=== PATIENT | male | born 1955 | race Caucasian/White ===

== ENCOUNTER 2025-06-08 10:56 | Observation (INO) | payer MEDICARE, BC, SELFPAY ==
[2025-06-08] VITALS (8 sets, daily range): BP systolic 105–139; BP diastolic 62–91; PULSE 82–96; RESP 17–27; TEMP 36.8; O2SAT 93–94; BMI 35.2
--- OUTSIDE RECORDS SUMMARY | 2025-06-08 10:59 | XMS_ITS | Clinical Summary ---
Author Organization [facility] Address [address] [place] [address] Phone Care Team Providers Care Keg Varnisher Name Role Phone Fer Rivera DO Primary Care Provider Allergies Active Allergy Reactions Criticality Noted Date Comments Jlrkdjw-Syz-Fzz Reductase Inhibitors Weakness High 07/12/2015 Trazodone Other (See Comments) 12/09/2020 tachycardia Medications OTHER Take by mouth daily. Vitamins and Supplements/D o not take 5 days before surgery 12/09/2020 Active cyclobenzaprine (FLEXERIL) 10 mg tablet Take 10 mg by mouth every 8 hours as needed. Active fieut-xp-6-dha- wwr-oofbzbd-ktz 1,432-464-57-80 mg Capsule Take 1 Tablet by mouth. Active HYDROcodone-nadiya taminophen (NORCO) 10-325 mg Tablet Take 1 Tablet by mouth every 4 hours as needed. 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 07/12/2015 07/09/2015 Preoperative general physical examination 2014 Hypercalcemia 06/28/2015 Obesity with body mass index of 30.0-39.9 2014 Hx of renal calculi Resolved Problems Problem Noted Date Diagnosed Date Resolved Date Primary osteoarthritis of right hip 06/28/2015 05/06/2025 Encounters Date Type Department Care Team Description 06/02/2025 Telephone [facility] [address] [place] [address] Tony Morales MD Question 05/19/2025 External Device Data STL ABSTRACTION Provider, Abstract 05/12/2025 External Device Data STL ABSTRACTION Provider, Abstract 05/12/2025 External Device Data STL ABSTRACTION Provider, Abstract 05/12/2025 External Device Data STL ABSTRACTION Provider, Abstract 05/06/2025 10:00 AM CDT Office Visit [facility] [address] [place] [address] Maria Antonia Holbrook NP Right knee pain, unspecified chronicity (Primary Dx); Primary osteoarthritis of right knee; Primary osteoarthritis of left knee 05/06/2025 9:35 AM CDT Ancillary Procedure [facility] [address] [place] [phone] Tony Morales MD Right knee pain, unspecified chronicity 05/06/2025 Telephone [facility] [address] [place] [address] Maria Antonia Holbrook NP Authorization 04/29/2025 Orders Only [facility] [address] [place] [phone] Tony Morales MD Right knee pain, unspecified chronicity (Primary Dx) from Last 3 Months Family History Medical History Relation Name Comments Healthy Brother Kelechi Other Father Sebastian rheumatoid, cir rhosis, COPD, heart problems Breast Cancer Mother Lois Other Mother Lois bowel obstructi on Stroke Mother Lois Unknown Mother Lois wasted away Heart Disease Sister Ashlee congenital hea rt defect- Healthy Son 1 Greg Other Son 2 Kwan GERD Relation Name Status Comments Brother Kelechi Alive Father Sebastian (Age 71) Mother Lois (Age 76) Sister Ashlee (Age 42) Son 1 Greg Alive Son 2 Kwan Alive Social History Tobacco Use Types Packs/Day Years Used Date Smoking Tobacco: Former Cigarettes Q uit: 11/11/2019 Smokeless Tobacco: Never Tobacco Cessation:Counseling Given: Not Answered Alcohol Use Standard Drinks/Week Comments No 0 (1 standard drink = 0.6 oz pur e alcohol) Sex and Gender Information Value Date Recorded Sex Assigned at Not on file Legal Sex Male 1:25 AM 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 Gender Identity Not on file Sexual Orientation Not on file Last Filed Vital Signs Vital Sign Reading Time Taken Comments Blood Pressure 152/92 05/06/2025 10:05 AM CDT Pulse 88 04/12/2022 1:19 PM CDT Temperature 36.3 C (97.4 F) 12/16/2020 2:00 PM CDT Respiratory Rate 16 12/16/2020 1:30 PM CDT Oxygen Saturation 92% 03/10/2021 1:32 PM CDT Inhaled Oxygen Concentration - - Weight 134.7 kg (297 lb) 05/06/2025 10:05 AM CDT Height 195.6 cm (6' 5 ) 05/06/2025 10:05 AM CDT Body Mass Index 35.22 05/06/2025 10:05 AM CDT Plan of Treatment Upcoming Encounters Date Type Department Care Team (Late st Contact Info) Description 06/10/2025 2:40 PM 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 Office Visit [facility] Orthopedics - Orthopedic [facility] [address] [place] [phone] Tony Morales MD [address] [place] [phone] Health Maintenance Due Date Last Done Comments Pre-Diabetes and Diabetes Screening 1955 DTAP/TDAP/TD VACCINES (1 - Tdap) 1974 COLORECTAL SCREENING 2000 Colorectal Cancer Screening 2000 FIT-DNA Q 3 years 2000 FIT/FOBT Q 1 year 2000 Flex Sig/CT Colonography Q 5 years 2000 PNEUMOCOCCAL VACCINE 50+ YEARS (1 of 1 - PCV) 04/28/20 05 ZOSTER VACCINE (1 of 2) 2005 Abdominal Aortic Aneurysm (AAA) Screening 2020 INFLUENZA VACCINE (#1) 2025 RSV VACCINE (60+ or ) (1 - 1-dose 75+ series) 2030 Medical Devices Implanted Type Area Associate Drafter Device Identifier Shelf Expiration Date Model / Serial / Lot Cup Rstrtn Adm 56mm Rt 1235-2-561 - [id number] Implanted:Qty: 1 on 07/12/2015 by Tony Morales MD Hip Right: Hip [employer] 2020 1235-2-561 / / [id number] Head Fem V40 Tpr Lfit 6260-9-328 - [id number] Implanted:Qty: 1 on 07/12/2015 by Tony Morales MD Hip Right: Hip [employer] 01/27/2020 6260-9-328 / / [id number] Liner Rstrtn Adm X3 28/56 1236-2-856 - [id number] Implanted:Qty: 1 on 07/12/2015 by Tony Morales MD Hip Right: Hip [employer] 03/29/2019 1236-2-856 / / [id number] Stem Fem Accld Ii 127d Sz5 [id number] - [id number] Implanted:Qty: 1 on 07/12/2015 by Tony Morales MD Hip Right: Hip [employer] 02/27/2020 [id number] / / [id number] Explanted Type Area Associate Drafter Device Identifier Shelf Expiration Date Model / Serial / Lot Screw Explanted:Qty: 1 on 07/12/2015 by Tony Morales MD Right: Hip Procedures Procedure Name Priority Date/Time Associated Diagnosis Comments XR KNEE 4+ VW RIGHT Routine 05/06/2025 9 :52 AM CDT Right knee pain, unspecified chronicity from Last 3 Months Results * XR KNEE 4+ VW RIGHT (05/06/2025 9:52 AM CDT) Anatomical Region Laterality Modality Lower Extremity Computed Radiogr aphy Narrative 05/06/2025 3:12 PM CDT 4 views of the right knee shows evidence of: Subchondral Sclerosis, Periarticular Osteophytes, and Joint Space Narrowing us Tony Morales MD DIAGNOSTIC IMAGING ORDERABLES Final Result from Last 3 Months Insurance MEDICARE PART A AND B [facility] * Guarantor: SHERRY SANABRIA Account Type Relation to Patient Date of Phone Billing Address Personal/Family [id number] [address] [place] [id number] [address] [facility] [employer] Care Teams Keg Varnisher Relationship Specialty Start Date End Date Fer Rivera DO [address] [place] [phone] PCP - General Internal Medicine 06/28/15
--- OUTSIDE RECORDS SUMMARY | 2025-06-08 11:00 | XMS_ITS | Encounter Summary ---
Author Organization [facility] Address [address] [place] [address] Care Team Providers Care Museum Informatics Specialist Name Role Phone RiveraFer Primary Care Provider [phone] Encounter Details Date Type Department Care Team (Latest Contact Info) Description 03/13/2016 Ancillary Orders [facility] Orthopedics - Orthopedic [facility] [address] [place] [phone] Tony Morales MD [address] [place] [address] Acute pain of right shoulder (Primary Dx) Social History Tobacco Use Types Packs/Day Years Used Date Smoking Tobacco: Former Cigarettes 1.5 45 0 03/28/1970 - 03/28/2015 Smokeless Tobacco: Never Alcohol Use Standard Drinks/Week Comments No 0 (1 standard drink = 0.6 oz pur e alcohol) Sex and Gender Information Value Date Recorded Sex Assigned at Not on file 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 Exam: XR SHOULDER 2+ VW RIGHT Date/Time of Exam: 03/13/2016 12:01 PM Reason For Exam: Acute pain of right shoulder. Findings: 0.2 mL OptiMARK contrast and 5 mL Conray 60 contrast was injected into the right glenohumeral joint. Images confirm the intra-articular injection of contrast. Please see the MRI the same day. No rotator cuff tear is identified on these images. Narrative Procedure Note Ericka Mitchell MD - 03/13/2016 IMPRESSION IMPRESSION: Please see below. Exam: XR SHOULDER 2+ VW RIGHT Date/Time of Exam: 03/13/2016 12:01 PM Reason For Exam: Acute pain of right shoulder. Findings: 0.2 mL OptiMARK contrast and 5 mL Conray 60 contrast was injected into the right glenohumeral joint. Images confirm the intra-articular injection of contrast. Please see the MRI the same day. No rotator cuff tear is identified on these images. us Tony Morales MD DIAGNOSTIC IMAGING ORDERABLES Final Result documented in this encounter Visit Diagnoses Diagnosis Acute pain of right shoulder- Primary Acute pain of right shoulder documented in this encounter Care Teams Museum Informatics Specialist Relationship Specialty Start Date End Date Fer Rivera DO [address] [place] [phone] PCP - General Internal Medicine 06/28/15 documented as of this encounter
--- OUTSIDE RECORDS SUMMARY | 2025-06-08 11:00 | XMS_ITS | Encounter Summary ---
Author Organization [facility] Address [address] [place] [address] Care Team Providers Care Horologist Name Role Phone RiveraFer Primary Care Provider [phone] Reason for Visit * Reason Onset Date Comments Question 06/02/2025 Encounter Details Date Type Department Care Team (Late st Contact Info) Description 06/02/2025 Telephone [facility] Orthopedics Orthopedic [facility] [address] [place] [phone] Tony Morales MD [address] [place] [phone] Question Social History Tobacco Use Types Packs/Day Years Used Date Smoking Tobacco: Former Cigarettes Q uit: 11/11/2019 Smokeless Tobacco: Never Alcohol Use Standard Drinks/Week Comments No 0 (1 standard drink = 0.6 oz pur e alcohol) Sex and Gender Information Value Date Recorded Sex Assigned at Not on file Legal Sex Male 1:25 AM 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 Gender Identity Not on file Sexual Orientation Not on file documented as of this encounter Miscellaneous Notes * Telephone Encounter - Yolette Anand - 06/02/2025 8:03 AM CST [place] Please schedule total knee discussion with the team AEOLOGIST documented in this encounter Plan of Treatment Upcoming Encounters Date Type Department Care Team (Late st Contact Info) Description 06/10/2025 2:40 PM 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 Office Visit [facility] Orthopedics - Orthopedic [facility] [address] [place] [address] Tony Morales MD [address] [place] [phone] documented as of this encounter Visit Diagnoses Not on filedocumented in this encounter Care Teams Horologist Relationship Specialty Start Date End Date Fer Rivera DO [address] [place] [phone] PCP - General Internal Medicine 06/28/15 documented as of this encounter
--- OUTSIDE RECORDS SUMMARY | 2025-06-08 11:00 | XMS_ITS | Encounter Summary ---
Author Organization [facility] Address [address] 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
--- OUTSIDE RECORDS SUMMARY | 2025-06-08 11:00 | XMS_ITS | Clinical Summary ---
Author Organization [facility] Orthopedic [facility] Address [address] [place] [address] Phone Care Team Providers Care Experimental Mechanic Name Role Phone RiveraFer Primary Care Provider [phone] Allergies Active Allergy Reactions Criticality Noted Date Comments Nkgtije-Znv-Rwg Reductase Inhibitors Weakness High 07/12/2015 Trazodone Other (See Comments) 12/09/2020 tachycardia Medications cyclobenzaprine (FLEXERIL) 10 mg tablet Take 10 mg by mouth 3 times daily as needed for Spasm. Active diazepam (VALIUM) 10 mg tablet Take 10 mg by mouth 2 times daily . Active bpjme-av-5-dha- sif-xpagxyt-bnz (KRILL OIL) 1,448-339-35-50 mg Capsule Take 1 Tablet by mouth daily with supper. Active docusate sodium (COLACE) 100 mg capsule Take 1 Capsule (100 mg) by mouth 2 times daily as needed for Constipation. 60 Capsule 0 5 Active cpap medical deviceIndicatio ns:obstructive sleep apnea syndrome,Obstru ctive Sleep Apnea-Hypopnea Syndrome Auto titration CPAP at a pressure of 10-13 CWP. Cpap/Bipap supplies: Full face mask and headgear A7030/A7035 1/6mo, mask only A7030 1/3mo, cushions A7031 1/mo, heated tubing A4604, 1/3mo, water chamber A7046 1/6mo, filter disposable filters A7038 2/mo, reusable filters A7039 1/6mo. Chin Strap A7036 1/6 mo Length of need; 99 mo DX : G47.33 1 Each 0 03/14/20 70 Active HYDROcodone-nadiya taminophen (NORCO) 10-325 mg Tablet Take 1 Tablet by mouth every 4 hours as needed for Pain, Moderate. Active OTHER Take by mouth daily. Vitamins and Supplements/Do not take 5 days before surgery Active celecoxib (CeleBREX) 400 mg capsule Take 400 mg by mouth daily. Active sertraline (ZOLOFT) 50 mg tablet Take 50 mg by mouth daily. Active vit calc,iron,folic ( VITAMIN ORAL) Take 1 Each by mouth daily. Active oxyCODONE (OxyCONTIN) 10 mg Controlled Release 12 hour crush resistant tabletIndicatio ns:Trigger finger, right middle finger,Carpal tunnel syndrome of right wrist,Cubital tunnel syndrome on right Take 1 Tablet (10 mg) by mouth every 12 hours as needed for Pain, Severe (BREAK-THROUGH POST-OPERATIVE PAIN). 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 07/12/2015 07/09/2015 Preoperative general physical examination 2014 Primary osteoarthritis of right hip 06/28/2015 Hypercalcemia 06/28/2015 Obesity with body mass index of 30.0-39.9 2014 Hx of renal calculi Family History Medical History Relation Name Comments Healthy Brother Kelechi Other Father Sebastian rheumatoid, cir rhosis, COPD, heart problems Breast Cancer Mother Lois Other Mother Lois bowel obstructi on Stroke Mother Lois Unknown Mother Lois wasted away Heart Disease Sister Ashlee congenital hea rt defect- Other Son 1 Kwan GERD Healthy Son 2 Greg Relation Name Status Comments Brother Kelechi Alive Father Sebastian (Age 71) Mother Lois (Age 76) Sister Ashlee (Age 42) Son 1 Kwan Alive Son 2 Greg Alive Social History Tobacco Use Types Packs/Day Years Used Date Smoking Tobacco: Former Cigarettes 1.5 45 0 11/10/1974 - 11/11/2019 Smokeless Tobacco: Never Alcohol Use Standard Drinks/Week Comments No 0 (1 standard drink = 0.6 oz pur e alcohol) Sex and Gender Information Value Date Recorded Sex Assigned at Not on file 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 Gender Identity Not on file Sexual Orientation Not on file Last Filed Vital Signs Vital Sign Reading Time Taken Comments Blood Pressure 126/90 12/16/2020 2:00 PM CDT Pulse 78 12/16/2020 2:00 PM CDT Temperature 36.3 C (97.4 F) 12/16/2020 2:00 PM CDT Respiratory Rate 16 12/16/2020 1:30 PM CDT Oxygen Saturation 93% 12/16/2020 2:00 PM CDT Inhaled Oxygen Concentration - - Weight 147.4 kg (325 lb) 12/31/2020 8:42 AM CDT Height 195.6 cm (6' 5 ) 12/31/2020 8:42 AM CDT Body Mass Index 38.54 12/31/2020 8:42 AM CDT Plan of Treatment Health Maintenance Due Date Last Done Comments DTAP/TDAP/TD VACCINES (1 - Tdap) 1974 COLORECTAL SCREENING 2000 Colorectal Cancer Screening 2000 FIT-DNA Q 3 years 2000 FIT/FOBT Q 1 year 2000 Flex Sig/CT Colonography Q 5 years 2000 PNEUMOCOCCAL VACCINE 50+ YEARS (1 of 1 - PCV) 04/28/20 05 ZOSTER VACCINE (1 of 2) 2005 INFLUENZA VACCINE (#1) 2025 RSV VACCINE (60+ or ) (1 - 1-dose 75+ series) 2030 Medical Devices Implanted Type Area Yeast Pumper Device Identifier Shelf Expiration Date Model / Serial / Lot Cup Rstrtn Adm 56mm Rt 1235-2-895 - [id number] Implanted:Qty: 1 on 07/12/2015 by Tony Morales MD at [facility] Hip Right: Hip [employer] 2020 1235-2-561 / / [id number] Stem Fem Accld Ii 127d Sz5 [id number] - [id number] Implanted:Qty: 1 on 07/12/2015 by Tony Morales MD at [facility] Hip Right: Hip [employer] 02/27/2020 [id number] / / [id number] Liner Rstrtn Adm X3 1236-2-856 - [id number] Implanted:Qty: 1 on 07/12/2015 by Tony Morales MD at [facility] Hip Right: Hip [employer] 03/29/2019 1236-2-856 / / [id number] Head Fem V40 Tpr Lfit 6260-9-328 - [id number] Implanted:Qty: 1 on 07/12/2015 by Tony Morales MD at [facility] Hip Right: Hip [employer] 01/27/2020 6260-9-328 / / [id number] Explanted Type Area Yeast Pumper Device Identifier Shelf Expiration Date Model / Serial / Lot Screw Explanted:Qty: 1 on 07/12/2015 by Tony Morales MD at [facility] Right: Hip Insurance MEDICARE PART A AND B [employer] [facility] [employer] Advance Directives For more information, please contact: [phone] * Full Code (Latest Code Status on File) Date Activated Date Inactivated Comments 12/16/2020 10:08 AM 12/16/2020 4:18 PM * Full Code Date Activated Date Inactivated Comments 07/12/2015 1:52 PM 07/13/2015 2:59 PM * Full Code Date Activated Date Inactivated Comments 07/12/2015 9:25 AM 07/12/2015 1:52 PM Care Teams Experimental Mechanic Relationship Specialty Start Date End Date Fer Rivera DO [address] [place] [phone] PCP - General Internal Medicine 06/28/15
--- NOTE | 2025-06-08 11:57 | PC.NURSE ---
Patient received from [facility] as direct admit. Arrived by ambulance. Patient c/o persistent chest pain/pressure to mid sternal area worse with inspiration. Patient has nitro paste applied at ABS. to left upper chest. Patient c/o severe headache since paste was applied. Patient is AAOx4. Asks and answers questions appropiately. Admission assessment completed by SN Reina. This RN was at bedside and conquers with assessments.
--- NOTE | 2025-06-08 12:45 | ECG_ITS ---
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 Measurements Intervals [place] Rate: 92 P: 25 TX: 152 QRS: 14 QRSD: 117 T: 13 QT: 365 QTc: 454 Interpretive Statements SINUS RHYTHM MODERATE INTRAVENTRICULAR CONDUCTION DELAY [110+ ms QRS DURATION] No previous ECG available for comparison Electronically Signed On 06-08-2025 18:14:03 INTELLIGENCE ANALYST by Humaira Mi M.D. [email or web address]
--- NOTE | 2025-06-08 12:48 | USCV_ITS ---
Jake Ruiz Age: 70 Gender: M : 1955 Exam Date: 06/08/2025 15:54 Ordering Phys: Crys Jara IT TRAINER Technologist: TOMAS Exam Location: [facility] [place] Indication: Angina BP: 139 / 91 HR: 79 Rhythm: Sinus Technical Quality: Adequate MEASUREMENTS (Male / Female) Normal Values 2D ECHO LV Diastolic Diameter PLAX 6.3 cm 4.2 - 5.9 / 3.9 - 5.3 cm IVS Diastolic Thickness 1.0 cm 0.6 - 1.0 / 0.6 - 0.9 cm IVS Systolic Thickness 1.1 cm LVPW Diastolic Thickness 1.0 cm 0.6 - 1.0 / 0.6 - 0.9 cm LVPW Systolic Thickness 1.0 cm LVOT Diameter 2.3 cm LV Ejection Fraction 2D Teich 53.8 % LV Ejection Fraction MOD 4C 56.9 % LV Ejection Fraction MOD 2C 47.3 % LV Ejection Fraction 2C AL 47.5 % LA Diameter 3.4 cm RA Systolic Volume 4C AL 41.7 ml RA Systolic Volume 4C MOD 39.3 ml LA Sys Volume AL 33.1 cm cubed LA Sys Volume Index AL 12.1 cm cubed/m squared Aorta at Sinotubular Diameter 3.1 cm M-MODE LA Ao Ratio MM 0.9 AV Cusp Separation MM 2.1 cm DOPPLER AV Peak Velocity 96.0 cm/s LVOT Peak Velocity 60.0 cm/s AV Area Cont Eq vti 2.6 cm squared AV Area Cont Eq pk 2.5 cm squared MV Peak Velocity 63.0 cm/s MV Area PHT 4.6 cm squared Mitral E to A Ratio 0.7 TR Peak Velocity 95.0 cm/s TR Peak Gradient 3.6 mmHg TV Peak E Velocity 53.0 cm/s PV Peak Velocity 74.0 cm/s FINDINGS Left Ventricle Technically limited quality echocardiogram because of poor ultrasonic windows. Grossly LV systolic function is normal. No gross regional wall motion abnormalities. Right Ventricle Normal in size and function Right Atrium Normal in size Left Atrium Normal in size IA Septum Grossly normal Mitral Valve Grossly normal Aortic Valve Grossly normal. No significant stenosis seen. Tricuspid Valve Not well visualized Pulmonic Valve Not well visualized Pericardium Normal Aorta Normal in size IVC Not well visualized CONCLUSIONS Technically limited quality echocardiogram because of poor ultrasonic windows. Grossly LV systolic function is normal. Crispin Elias MD (Electronically Signed) Final Date: 08 June 2025 20:29 S
[2025-06-08] MEDS: morphine 4 mg/mL SDV 1 mL IVP ×2 (13:09→21:43)
[2025-06-08] MEDS: ondansetron 2 mg/ML SDV 2 mL 4 MG IVP (13:09)
[2025-06-08 13:44] LABS: Platelet Count 349 10^3/cmm (157-399)
[2025-06-08] MEDS: pantoprazole 40 mg SDV IVP (14:01)
[2025-06-08] MEDS: heparin drip 25,000 UNIT/500 ML PREMIX 38 UNIT IV (14:02)
[2025-06-08] MEDS: HYDROcodone-acetaminophen 10-325 mg Tablet 1 TAB PO ×3 (14:06→23:51)
[2025-06-08 14:21] LABS: Partial Thromboplastin Time 27.0 SECONDS (23.9-36.7)
--- NOTE | 2025-06-08 14:49 | PM.CONSULT ---
Providers/Reason For Consult Consulting Physician/Specialty*: Dr Elias, interventional cardiology Reason for Consult*: chest pain Requesting Physician: SHELLY Ernst NP Attending Physician: SHELLY Ernst NP History of Present Illness History of Present Illness Jake Ruiz is a 70 year old male with previous history of smoking, hypertension, chronic back pain who presented to an outside facility with severe substernal chest pain radiating to the bilateral jaws, with back pain between the scapulae which seems to be reproducible with palpation. The last time he had chest pain like this was the week his . At that time, which was 2019, he had a coronary angiogram which showed no disease, per patient. He has never had an [place], CHF, no previous stent. He has had high blood pressure lately, but that is a new development as well. At the outside facility, baseline troponin was normal, no ischemic EKG changes. He was transferred to our facility due to the typical nature of the chest pain symptoms. He was previously on a statin (cannot recall the name) and reports he had progressive muscle weakness for the time he was taking it. He declines to try any other statin medication. Home medications include enalapril, Celebrex and naproxen, with as needed hydrocodone for back pain. He had previous back surgeries with significant daily residual back pain. No chest pain, shortness of breath, fatigue or other anginal equivalent noted in the days or weeks leading up to this event. He is not able to lay flat in the bed due to worsening of the back pain. EKG here does not show any ischemia. Review of Systems Const: Denies: fever(s), chills, change in weight, fatigue or diaphoresis Eyes: Denies: change in vision ENMT: Denies: epistaxis Card: Reports: chest pain; Denies: palpitations, irregular heart rhythm, edema, syncope, pre-syncope, dyspnea on exertion, orthopnea or leg pain with exertion Resp: Denies: dyspnea, productive cough or wheezing GI: Denies: nausea, vomiting, hematemesis, hematochezia or melena : Denies: hematuria Musc: Denies: extremity swelling Dariel/Lymph: Denies: easy bruising or easy bleeding Medications/Allergies Home Medications ?Medication ?Instructions ?Recorded ?Confirmed ?Last Taken ?Type celecoxib 100 mg capsule 100 mg PO BID 06/08/25 06/08/25 Unknown History enalapril maleate 5 mg tablet 5 mg PO BEDTIME 06/08/25 06/08/25 06/07/25 21:00 History hydrocodone 10 mg-acetaminophen 1 - 1.5 tab PO Q4H PRN Moderate 06/08/25 06/08/25 06/08/25 06:30 History 325 mg tablet Pain (Scale Score 5-6) 1.5 magnesium 500 mg tablet 1,000 mg PO DAILY 06/08/25 06/08/25 06/08/25 07:00 History naproxen sodium 220 mg capsule 440 mg PO DAILY PRN Pain (Scale 06/08/25 06/08/25 Unknown History Score 1-3) tizanidine 4 mg tablet 4 mg PO TID PRN muscle spasms 06/08/25 06/08/25 06/07/25 12:00 History vitamin D3 125 mcg (5,000 1 cap PO DAILY 06/08/25 06/08/25 06/08/25 06:30 History unit)-vitamin K2 100 mcg capsule zinc 50 mg tablet 50 mg PO DAILY 06/08/25 06/08/25 06/08/25 06:30 History Allergies Allergy/AdvReac Type Severity Reaction Status Date / Time Tkurudd-CAX-LhD Reductase Allergy ADR-Muscle Verified 06/08/25 11:57 Inhibitor Pain trazodone Allergy ALGY-Joint Verified 06/08/25 11:57 Pain Current Medications Generic Name Dose Route Start Last Admin Trade Name Freq PRN Reason Stop Dose Admin Hydrocodone Bitart/Acetaminophen 1 tab 06/08/25 12:57 06/08/25 14:06 Hydrocodone-Acetaminophen 10-325 Mg Tablet PO 1 tab Q4H PRN Administration Moderate Pain (Scale Score 5-6) Heparin Sodium/Sodium Chloride 25,000 unit in 500 mls @ 0 mls/hr 06/08/25 12:30 06/08/25 14:02 Heparin Drip IV 14.1 unit/kg/hr CONT SETH 38 mls/hr Protocol Administration Per Protocol Morphine Sulfate 4 mg 06/08/25 12:14 06/08/25 13:09 Morphine 4 Mg/Ml Sdv 1 Ml IVP 4 mg Q4H PRN Administration SEVERE PAIN Ondansetron HCl 4 mg 06/08/25 12:50 06/08/25 13:09 Ondansetron 2 Mg/Ml Sdv 2 Ml IVP 4 mg Q8H PRN Administration vomiting, or N/V if npo Pantoprazole Sodium 40 mg 06/08/25 13:00 06/08/25 14:01 Pantoprazole 40 Mg Sdv IVP 40 mg Q24H SETH Administration Tizanidine HCl 4 mg 06/08/25 12:57 06/08/25 13:15 Tizanidine 4 Mg Tablet PO 4 mg TID PRN Administration MUSCLE SPASMS Vitals/I&O/Wt Last Vital Signs Pulse 85 06/08/25 13:29 Resp 18 06/08/25 13:09 Pulse Ox 93 06/08/25 13:29 O2 Del Method Room Air 06/08/25 13:29 Weight last 48 hrs Weight 297 lb Physical Exam Const: COMMON NORMALS: no acute distress and patient oriented x3 GENERAL APPEARANCE: cooperative and comfortable ORIENTATION/CONSCIOUSNESS: Yes awake, Yes oriented to person, Yes oriented to place and Yes oriented to time Chest: COMMONS NORMALS: normal inspection of the chest and normal palpation of entire chest wall CHEST: Yes Symmetrical chest wall rise Resp: COMMON NORMALS: normal respiratory effort, No retractions, No use of accessory muscles and clear to auscultation bilaterally EFFORT & INSPECTION: Yes symmetric chest movement AUSCULTATION: clear to auscultation bilaterally Cardio: COMMON NORMALS: regular rate, regular rhythm, S1 normal heart sound present, S2 normal heart sound present, No gallops present (Cardio), No clicks present (Cardio), No murmurs present (Cardio) and No rub (Cardio) RATE: regular rate RHYTHM: regular rhythm HEART SOUNDS: S1 normal heart sound present and S2 normal heart sound present PERIPHERAL PULSES: radial pulses present Extremity: COMMON NORMALS: no pedal edema Neuro: COMMON NORMALS: patient oriented x3 and moves all extremities SENSORIUM/ORIENTATION: Yes oriented to person, Yes oriented to place and Yes oriented to time Data 06/08/25 13:28 A&P Assessment and plan 1. Chest pain at rest: 2. Hypertension: Plan: Troponin at outside facility and first troponin here have been negative. Chest pain is improving, the jaw pain has nearly resolved. We are starting a heparin infusion. Blood pressure controlled, he is in sinus rhythm but somewhat tachycardic at the time of exam. Discussed stress testing with him tomorrow, he states it will have to be a Lexiscan stress test due to knee pain he cannot walk on a treadmill. If he has elevation in troponin or chest pain becomes more of an unstable angina, he may require coronary angiogram. Obtain echocardiogram. Finish troponin series. NPO after midnight tonight for further workup tomorrow. PDMP PDMP Reviewed: Not Reviewed Coding Level of Care Code Acute Code for Chg Fwd Diagnoses Chest pain at rest R07.9 Hypertension I10
[2025-06-08 14:52] LABS: Troponin T (5th) Once 11 ng/L (0-15)
--- NOTE | 2025-06-08 16:44 | ECG_ITS ---
[facility] Date: 2025-06-08 Pat Name: Jake Ruiz Department: Room: 105 Gender: Male Sales Professional: : 1955 Requested By: Yamil Major Order Number: [id number] Reading MD: Humaira Mi M.D. Measurements Intervals [place] Rate: 78 P: 29 VA: 159 QRS: 22 QRSD: 113 T: 34 QT: 375 QTc: 429 Interpretive Statements SINUS RHYTHM INCOMPLETE RIGHT BUNDLE BRANCH BLOCK [90+ ms QRS DURATION, TERMINAL R IN V1/V2, 40+ ms S IN I/aVL/V4/V5/V6] Compared to ECG 06/08/2025 14:21:33 Incomplete right bundle-branch block now present Intraventricular conduction delay no longer present Electronically Signed On 06-08-2025 18:13:53 SCENIC ARTS SUPERVISOR by Humaira Mi M.D. [id number] [id number]
[2025-06-08 17:51] LABS: Troponin 5 2HR 13.73 ng/L (0-15)
[2025-06-08 17:59] LABS: Troponin 5 2HR Delta 2.73 ABS# (0-10)
--- NOTE | 2025-06-08 18:30 | PM.HP ---
Providers/Chief Complaint Admitting Physician: Yamil Major Chief Complaint: unstable angina History of Present Illness Jake Ruiz is a 70 year old male with pmhx of multiple back surgeries and former smoker (quit 2019), presenting with complaints of chest pain. Patient reports that he had chest pain today that increased to 8/10. Pain became so bad that he became nauseous, couldn't take a deep breath, and had increased pain with coughing. Pain is worse when lying flat. His blood pressure was elevated 140s/90s. Denies diaphoresis, clots, leg swelling, arm pain, blood in stool, fever, or any other modifying factors. Will admit to Hospitalist Service for further evaluation and treatment. Cardiology consulted. Of note, is allergic to statins. He does not remember the drug name but his reaction is severe extremity weakness. Review of Systems General: Reports: 10 or more systems reviewed and unremarkable except in HPI and below Card: Reports: chest pain and other (increased chest pain when lying flat) Resp: Reports: dyspnea and non-productive cough GI: Reports: nausea Musc: Reports: back pain and other (Reproducible pain and back spasms) Neuro: Reports: headache(s) Medications/Allergies Home Medications ?Medication ?Instructions ?Recorded ?Confirmed ?Last Taken ?Type celecoxib 100 mg capsule 100 mg PO BID 06/08/25 06/08/25 Unknown History enalapril maleate 5 mg tablet 5 mg PO BEDTIME 06/08/25 06/08/25 06/07/25 21:00 History hydrocodone 10 mg-acetaminophen 1 - 1.5 tab PO Q4H PRN Moderate 06/08/25 06/08/25 06/08/25 06:30 History 325 mg tablet Pain (Scale Score 5-6) 1.5 magnesium 500 mg tablet 1,000 mg PO DAILY 06/08/25 06/08/25 06/08/25 07:00 History naproxen sodium 220 mg capsule 440 mg PO DAILY PRN Pain (Scale 06/08/25 06/08/25 Unknown History Score 1-3) tizanidine 4 mg tablet 4 mg PO TID PRN muscle spasms 06/08/25 06/08/25 06/07/25 12:00 History vitamin D3 125 mcg (5,000 1 cap PO DAILY 06/08/25 06/08/25 06/08/25 06:30 History unit)-vitamin K2 100 mcg capsule zinc 50 mg tablet 50 mg PO DAILY 06/08/25 06/08/25 06/08/25 06:30 History Allergies Allergy/AdvReac Type Severity Reaction Status Date / Time Rahljnn-GXM-WbI Reductase Allergy ADR-Muscle Verified 06/08/25 11:57 Inhibitor Pain trazodone Allergy ALGY-Joint Verified 06/08/25 11:57 Pain Vitals/I&O/Wt Last Vital Signs Pulse 92 06/08/25 17:38 Resp 19 H 06/08/25 17:38 BP 139/91 06/08/25 17:38 Pulse Ox 94 06/08/25 17:38 O2 Del Method Room Air 06/08/25 13:29 06/08/25 06/08/25 06/08/25 06:59 14:59 22:59 Intake Total 360 / 360 Balance 360 / 360 Weight last 48 hrs Weight 134.717 kg Physical Exam Const: COMMON NORMALS: patient oriented x3, alert and well nourished HENMT: COMMON NORMALS: normocephalic HEAD & SCALP: normal to inspection and normocephalic Eye: COMMON NORMALS: Equal, round and reactive pupils present and EOMs intact bilaterally Neck/C-Spine: COMMON NORMALS: full ROM Lymph: LYMPHATIC: no lymphadenopathy noted Chest: COMMONS NORMALS: normal inspection of the chest Resp: COMMON NORMALS: normal respiratory effort Cardio: COMMON NORMALS: regular rate and regular rhythm Back/Pelvis: OTHER: Back pain Neuro: COMMON NORMALS: patient oriented x3 and moves all extremities Psych: COMMON NORMALS: mental status grossly normal, cooperative, normal affect and speech normal Skin: COMMON NORMALS: no rashes or lesions noted Data 06/08/25 13:28 A&P PDMP PDMP Reviewed: Not Reviewed Attestations Medical Necessity Statement*: Continued hospitalization for cardiac observation. Time Spent in Patient Care: Greater than 35 minutes
--- NOTE | 2025-06-08 21:31 | ECG_ITS ---
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 Measurements Intervals [place] Rate: 87 P: 21 IA: 164 QRS: 3 QRSD: 110 T: 24 QT: 366 QTc: 440 Interpretive Statements SINUS RHYTHM Compared to ECG 06/08/2025 16:49:06 Incomplete right bundle-branch block no longer present Electronically Signed On 06-11-2025 20:07:29 PIPE STEM REPAIRER by Pritesh Esteves M.D. [email or web address] [id number]
[2025-06-08 22:55] LABS: Troponin 5 6HR 12.23 ng/L (0-15)
[2025-06-08 22:59] LABS: Partial Thromboplastin Time 112.5 SECONDS (23.9-36.7)
[2025-06-08 23:07] LABS: Troponin 5 6HR Delta 1.23 ng/L (0-12)
[2025-06-09] VITALS: BP 108/66; PULSE 77; RESP 14; TEMP 36.8; O2SAT 90
[2025-06-09] MEDS: heparin drip 25,000 UNIT/500 ML PREMIX 30 UNIT IV (03:50)
[2025-06-09 04:00] VITALS: BP 117/60; PULSE 86; RESP 18; TEMP 36.6; O2SAT 96
[2025-06-09 05:23] LABS: Hematocrit 45.8 % (37-53); Hemoglobin 14.40 g/dL (11.27-16.99); Mean Corpuscular HGB Conc 31.4 g/dL (30-55); Mean Corpuscular Hemoglobin 29.0 pg (27-33); Mean Corpuscular Volume 92.3 fl (82-101); Nucleated Red Blood Cells % 0 %; Platelet Count 286 10^3/cmm (157-399); Red Blood Count 4.96 10^6/uL (3.85-5.65); White Blood Count 8.27 10^3/uL (3.29-11.43)
[2025-06-09 05:39] LABS: Anion Gap 13.3 (5-19); Blood Urea Nitrogen 10 mg/dL (8-23); Calcium 9.3 mg/dL (8.5-10.5); Carbon Dioxide 29 mmol/L (22-29); Chloride 103 mmol/L (98-107); Creatinine Clr Calc Pharmacy 130.2768; Glucose 100 mg/dL (65-115); Osmolality Calculated 291 mOsm/kg (285-295); Potassium 4.3 mmol/L (3.5-5.1); Sodium 141 mmol/L (136-145)
[2025-06-09 05:52] LABS: Partial Thromboplastin Time 189.2 SECONDS (23.9-36.7)
[2025-06-09 05:57] LABS: Estmated Average Glucose 128; Hemoglobin A1C 6.1 % (4.0-6.0)
--- NOTE | 2025-06-09 07:15 | PC.NURSE ---
Robbie ptt came back at 189.2, Dr mckeon was notified and orders to hold heparin gtt and recheck ptt in 4 hours.
[2025-06-09 07:23] VITALS: BP 125/70; PULSE 97
[2025-06-09 08:00] VITALS: BP 114/80; PULSE 81; RESP 15; TEMP 36.6; O2SAT 97
--- NOTE | 2025-06-09 09:59 | PC.CHAP ---
Pastoral Care Encounter/Spiritual Assessment Type of Contact [] Declined armorer technician visit [] Patient/Family/Request visit [] Outpatient visit [] Follow-up visit [] Physician referral [] Code/Alert [x] Routine visit [] Staff referral [] Actively dying [] Patient sleeping [] Family support [] [] Out of room [] Palliative care [] [] Receiving care in room [] Pre-surgical visit [] Trauma [] Long length of stay [] ICU visit [] Other: Relational/Emotional Strength [x] Patient feels connected with others/family/visitors/staff [] Distress [] Loneliness/isolation [] Abandonment Spirituality of Patient [x] Person of [place] [] Attends Presybeterian of their [place] [x] Believes in Prayer [] Reads Bible or Catholic materials [] There are Spiritual issues to be addressed System Support Analyst Interventions [x] Prayer [x] Active listening [] Non-anxious presence [x] Spiritual/emotional support [] Crisis/trauma care [] Spiritual counseling [] Bereavement support [] Provided bereavement packet [] Provided Bible/devotional materials [] Provided toy/stuffed animal, coloring book to patient or family member [] Provided Communion [] Anointing/[place] [] Salvation [x] Completed spiritual assessment [] Other: Impact on Illness or Injury [] Angry [] Fearful [] Anxious [] Often cries [] Exhaustion [] Unable to work [] Unable to attend sabianist [] Unable to walk/stand [] Unable to read [] Unable to drive [] Unable to eat/drink [] Unable to sleep [] Unable to be with family [] Patient intubated [] Other: Summary Time spent with patient 5 min
--- NOTE | 2025-06-09 11:13 | PM.DCS ---
Discharge Providers Date of Admission: 06/08/25 10:56 Date of Discharge: June 09, 2025 Attending Provider at Admission: Yamil Major Attending Provider at Discharge: Tha Chaudhary MD Diagnoses at Discharge Discharge Diagnosis 1. Chest pain at rest: Details from hospital stay: Due to high risk of cardiac etiology 2. Hypertension: Reason for Visit Reason for Visit: unstable angina Brief History: Patient presented with apparent chest pain, noted to have unstable angina. ACS protocol was observed, while patient was seen by the mechanical project engineer. Hospital Course Hospital Course Patient was further observed on telemetry, while other concomitant symptoms were treated empirically. Patient continued to do well, and remained stable till this morning. Consequently, cardiology recommended patient to be discharged home on oral antiplatelets. Patient therefore discharged. See my discharge orders for more details. Physical Exam Narrative: General: Awake and alert patient. No acute distress. A lot of physical findings. Normal limits. Discharge Data Studies Completed and Pending Completed Studies During Hospitalization Category Date Time Status NM andie perf SPECT r/s* [id number] Routine Nuc Med 06/09/25 15:29 Completed CV. echo complete* [id number] Routine Ultrasound 06/08/25 12:48 Completed Pending at discharge Category Date Time Status Cardiac Stress Test MIBI [Sestamibi Stress Test Request Exams 06/08/25 15:29 Ordered ] Routine Platelet Count Q2D Lab 06/10/25 04:00 Ordered Platelet Count Q2D Lab 06/12/25 04:00 Ordered Laboratory Results Glucose 100 mg/dL (65-115) 06/09/25 05:15 Estimat Average Glucose 128 06/09/25 05:15 Hemoglobin A1c 6.1 % (4.0-6.0) H 06/09/25 05:15 Calculated Osmolality 291 mOsm/kg (285-295) 06/09/25 05:15 Calcium 9.3 mg/dL (8.5-10.5) 06/09/25 05:15 Troponin T 5th Gen ng/L 11 ng/L (0-15) 06/08/25 13:28 Troponin T 120 Minute 13.73 ng/L (0-15) 06/08/25 17:04 Delta Troponin T 2.73 ABS# (0-10) 06/08/25 17:04 Troponin T Hi Sens 6Hr 12.23 ng/L (0-15) 06/08/25 21:33 Troponin T Hi Sens 6Hr Delta 1.23 ng/L (0-12) 06/08/25 21:33 Imaging Cardiac Stress Test: Radiologist's impression: IMPRESSIONS 1. There is a medium sized area of myocardial infarction versus attenuation artifact in the inferolateral wall. Because wall motion looks globally normal in this area and the perfusion is worse on the resting images compared to stress this is more likely an area of attenuation rather than an infarction. 2. Globally normal left ventricular systolic function. Ejection fraction 61%. 3. Echocardiogram would be a better imaging test to assess segmental wall motion in the inferolateral wall. Vitals Last Vital Signs Temp 97.9 F 06/09/25 08:00 Pulse 81 06/09/25 08:00 Resp 15 06/09/25 08:00 BP 114/80 06/09/25 08:00 Pulse Ox 97 06/09/25 08:00 O2 Del Method Room Air 06/09/25 04:00 Discharge Plan Discharge Patient Disposition: Home Condition: Stable Prescriptions: New aspirin [Enteric Coated Aspirin] 81 mg tablet,delayed release (DR/EC) 81 mg PO DAILY Qty: 100 6RF Continued magnesium 500 mg Tablet 1,000 mg PO DAILY enalapril maleate 5 mg tablet 5 mg PO BEDTIME tizanidine 4 mg tablet 4 mg PO TID PRN (Reason: muscle spasms) hydrocodone-acetaminophen 10-325 mg tablet 1 - 1.5 tab PO Q4H PRN (Reason: Moderate Pain (Scale Score 5-6)) zinc 50 mg Tablet 50 mg PO DAILY celecoxib 100 mg capsule 100 mg PO BID naproxen sodium 220 mg Capsule 440 mg PO DAILY PRN (Reason: Pain (Scale Score 1-3)) vitamin D3-vitamin K2 125 mcg (5,000 unit)-100 mcg Capsule 1 cap PO DAILY Counter Top Assembler OK for DC: Cardiology Discharge Order = DC NOW: Discharge Order (Routine); Ordered 06/09/25 Ordered By: Tha Chaudhary Discharge Diet: Cardiac and Low Cholesterol Discharge Activity: Increase activity as tolerated Patient Instructions: Aspirin (By mouth), Opioid Safety, Patient Portal & Rhonda Instructions Activity Restrictions/Additional Instructions: Follow-up with your primary care provider within the next 2 to 4 weeks/as needed. Otherwise, follow-up with mechanical project engineer as directed. May return to the ER if symptoms worsen, and if is an emergency. Discharge Attestations Time Spent in Discharge Care*: less than 30 min Quality Metrics Clinical Quality Measures [ No reported AMI, CVA or VTE this stay] Coding Level of Care Code Acute Code for Chg Fwd Diagnoses Chest pain at rest R07.9 Hypertension I10
--- NOTE | 2025-06-09 13:02 | PC.NURSE ---
Patient discharged to home. Instruction provided regarding medication changes. Patient did not have any follow up needs. Discussed cardiac stress test and upcoming knee replacement surgery. Patient verbalized all understanding. Patient left ambulatory to private vehicle with son by side. patient denies pain or needs. No distress observed.
[2025-06-09 13:09] VITALS: BP 114/80; PULSE 81; RESP 16; O2SAT 99
--- NOTE | 2025-06-09 15:29 | NMCV_ITS ---
NM andie perf SPECT r/s* [id number] RajinderJake vegas Age: 70 Gender: M : 1955 Exam Date: 06/09/2025 06:22 Ordering Phys: Anabel Briones Technologist: KADEEM Kiran Exam Location: [facility] Indications: cp STRESS TEST Please see separate stress test report in [facility] for full findings IMAGE PROTOCOL Rest/Stress 1 Lexiscan Day Radiopharmaceutical Dose (mCi) Administration Site Administered by Rest: Tc-99m 10.8 IV KADEEM Kiran Sestamibi Stress:Tc-99m 32.5 IV KADEEM Chance Sestamibi Rest: 09-Jun-2025 60 Discovery 630 Stress: 09-Jun-2025 30 Discovery 630 0.4mg Lexiscan. Supine position only as patient was unable to lay prone. SPECT RESULTS Technical Quality: Good Raw Data Analysis: Normal Image Corrections: No attenuation or motion correction applied Summed Stress Score: 5 Summed Rest Score: 5 Summed Difference Score: 1 PERFUSION FINDINGS There is a medium sized area of moderately to severely reduced tracer counts in the inferolateral wall which is fixed when looking at both the resting and stress images. There is no reversibility. There is slight worsening of the defect on the resting images compared to the stress images. FUNCTIONAL RESULTS (calculated via Gated SPECT) Stress Image LV EF (%): 61 Stress EDV (mL):132 TID: 0.88 Stress ESV (mL):52 FUNCTIONAL FINDINGS: There is normal global left ventricular systolic function. Ejection fraction 61%. IMPRESSIONS 1. There is a medium sized area of myocardial infarction versus attenuation artifact in the inferolateral wall. Because wall motion looks globally normal in this area and the perfusion is worse on the resting images compared to stress this is more likely an area of attenuation rather than an infarction. 2. Globally normal left ventricular systolic function. Ejection fraction 61%. 3. Echocardiogram would be a better imaging test to assess segmental wall motion in the inferolateral wall. Pritesh Esteves MD, FACC (Electronically Signed) Final Date: 09 June 2025 08:09 S
== END 2025-06-09 12:00 | disposition home or self-care (01) ==
PROVIDERS: Clinical Nurse Specialist Acute Care; Internal Medicine; Admitting Provider Internal Medicine; Family Provider Family Medicine; Visit Provider Family Medicine
DX: R07.9 Chest pain, unspecified (principal); I10 Essential (primary) hypertension; Z79.891 Long term (current) use of opiate analgesic; Z87.891 Personal history of nicotine dependence; K21.9 Gastro-esophageal reflux disease without esophagitis
CPT/HCPCS: 36415; 78452; 80048; 83036; 84484; 85025; 85049; 85378; 85730; 93005; 93017; 93306; 96375; A9500; G0378; G0379; J1644; J2270; J2405; J2470; J2785; J9999